=== PATIENT | male | born 1975 | race Caucasian/White ===

== ENCOUNTER 2016-09-07 21:04 | Emergency (ER) | payer OTHER ==
[~2016-09-07] VITALS: Ht 185.4 cm; Wt 114.5 kg
[~2016-09-07 21:04] MED LIST: BENA25TA8 PO; EPIP0.3I IM; Z.0.NO CURRENT MEDS
[2016-09-07 21:07] VITALS: BP 136/92; PULSE 105; RESP 18; TEMP 97.9; O2SAT 97
[2016-09-07] MEDS ORDERED: L-AR500T PO (21:39)
--- NOTE | 2016-09-07 21:54 | PD ---
HPI Chief Complaint: Abdominal Pain Time Seen by Provider: 21:50 Travel History International Travel<30 days: No Contact w/Intl Traveler<30days: No Traveled to known affect area: No History of Present Illness HPI 40 year-old male presents to the emergency department for complaint of left upper quadrant abdominal pain. Patient reports that he's had daily left upper quadrant abdominal pain with bloating sensation 6-8 months. Patient states this seems to happen primarily between 3 AM and 6 AM. Patient reports at times the pain associated makes him cry but he never goes to the hospital at that time for evaluation. Patient states he is followed through the [facility] but has not been able to get to the clinic because when he has appointment he's pulled away because his work. Patient reportedly works in [place]. Patient admits to daily frequent alcohol use. No prior history of pancreatitis alcoholic gastritis or hepatitis. Patient takes no prescription medication. The patient has had no fever or chills. Patient denies chest pain or shortness of breath. Patient states she's been told he has constipation. Patient reports symptoms have actually occurred for 2 years but of been less frequent until the last 6 months. Patient's had no reported hematemesis coffee-ground emesis melena hematochezia dysuria frequency urgency flank pain or weight loss. Patient denies other concerns or complaints. Patient rates current pain as 2-5/10 in intensity. Patient is unable to identify exacerbating or alleviating factors. Patient cannot make in association with type of foods or activities. PFSH Past Medical History Diminished Hearing: No Immunizations Current: Yes Tetanus Vaccination: > 5 Years Influenza Vaccination: No Past Surgical History Other Surgery: Yes (nasal) Social History Alcohol Use: Yes (OCC) Tobacco Use: Yes (1 PPD) Substance Use: No Allergies-Medications (Allergen,Severity, Reaction): Coded Allergies: Ants (Verified Allergy, Severe, Shortness of Breath, 09/07/16) Reported Meds & Prescriptions Reported Meds & Active Scripts Active Reported l-Arginine (Arginine) 500 Mg Tab Tab PO TID Review of Systems Except as stated in HPI: all other systems reviewed are Neg Physical Exam Narrative GENERAL: Well-developed well-nourished male in no acute distress no respiratory distress SKIN: Warm and dry. HEAD: Normocephalic. EYES: No scleral icterus. No injection or drainage. NECK: Supple, trachea midline. No JVD or lymphadenopathy. CARDIOVASCULAR: Regular rate and rhythm without murmurs, gallops, or rubs. RESPIRATORY: Breath sounds equal bilaterally. No accessory muscle use. GASTROINTESTINAL: Abdomen soft, non-tender, nondistended. MUSCULOSKELETAL: No cyanosis, or edema. BACK: Nontender without obvious deformity. No CVA tenderness. Data Data Last Documented VS Vital Signs Date Time Temp Pulse Resp B/P Pulse Ox O2 Delivery O2 Flow Rate FiO2 09/07/16 23:50 88 20 131/76 97 Room Air 09/07/16 21:07 97.9 Orders Complete Blood Count With Diff (09/07/16 21:50) Comprehensive Metabolic Panel (09/07/16 21:50) Lipase (09/07/16 21:50) Urinalysis - C+S If Indicated (09/07/16 21:50) Electrocardiogram (09/07/16 21:50) Magnesium (Mg) (09/07/16 21:50) Alcohol (Ethanol) (09/07/16 21:50) Potassium Chloride (Kcl) (09/07/16 23:30) Pantoprazole (Protonix) (09/07/16 23:30) Sucralfate Liq (Carafate Liq) (09/07/16 23:30) Troponin I (09/07/16 22:06) Labs Laboratory Tests Test 09/07/16 09/07/16 21:30 22:06 Urine Color YELLOW Urine Turbidity CLEAR Urine pH 5.5 Urine Specific [place] 1.018 Urine Protein NEG mg/dL Urine Glucose (UA) NEG mg/dL Urine Ketones 15 mg/dL Urine Occult Blood NEG Urine Nitrite NEG Urine Bilirubin NEG Urine Leukocyte Esterase NEG Urine RBC 0-2 /hpf Urine WBC 0-2 /hpf Urine Squamous Epithelial 0-5 /hpf Cells Urine Bacteria NONE /hpf Microscopic Urinalysis Comment CULT NOT INDICATED White Blood Count 8.3 TH/MM3 Red Blood Count 5.32 MIL/MM3 Hemoglobin 15.2 GM/DL Hematocrit 44.5 % Mean Corpuscular Volume 83.5 FL Mean Corpuscular Hemoglobin 28.6 PG Mean Corpuscular Hemoglobin 34.2 % Concent Red Cell Distribution Width 12.8 % Platelet Count 203 TH/MM3 Mean Platelet Volume 8.8 FL Neutrophils (%) (Auto) 56.0 % Lymphocytes (%) (Auto) 29.7 % Monocytes (%) (Auto) 8.8 % Eosinophils (%) (Auto) 1.0 % Basophils (%) (Auto) 4.5 % Neutrophils # (Auto) 4.6 TH/MM3 Lymphocytes # (Auto) 2.5 TH/MM3 Monocytes # (Auto) 0.7 TH/MM3 Eosinophils # (Auto) 0.1 TH/MM3 Basophils # (Auto) 0.4 TH/MM3 CBC Comment DIFF FINAL Differential Comment Sodium Level 138 MEQ/L Potassium Level 3.3 MEQ/L Chloride Level 102 MEQ/L Carbon Dioxide Level 26.1 MEQ/L Anion Gap 10 MEQ/L Blood Urea Nitrogen 13 MG/DL Creatinine 1.10 MG/DL Estimat Glomerular Filtration 75 ML/MIN Rate Random Glucose 108 MG/DL Calcium Level 8.3 MG/DL Magnesium Level 2.0 MG/DL Total Bilirubin 0.7 MG/DL Aspartate Amino Transf 22 U/L (AST/SGOT) Alanine Aminotransferase 71 U/L (ALT/SGPT) Alkaline Phosphatase 76 U/L Troponin I LESS THAN 0.02 NG/ML Total Protein 7.3 GM/DL Albumin 3.5 GM/DL Lipase 140 U/L Ethyl Alcohol Level 11 MG/DL MDM Medical Decision Making Medical Screen Exam Complete: Yes Emergency Medical Condition: Yes Medical Record Reviewed: Yes Interpretation(s) CBC & BMP Diagram 09/07/16 22:06 Vital Signs Date Time Temp Pulse Resp B/P Pulse Ox O2 Delivery O2 Flow Rate FiO2 09/07/16 23:50 88 20 131/76 97 Room Air 09/07/16 21:55 92 20 162/80 97 Room Air 09/07/16 21:07 97.9 105 18 136/92 97 Troponin I: Less than 0.02, not elevated EKG sinus rhythm rate 99 nonspecific T wave changes without acute ST elevation or injury pattern change noted Differential Diagnosis Abdominal pain, gastritis, peptic ulcer disease, colitis, atypical chest pain, atypical biliary colic, abdominal wall strain Narrative Course Patient with 2 years of left upper quadrant abdominal pain that is now reportedly occurring more frequently over the past 6-8 months on a daily basis that at times is so severe it makes him cry although has not had any evaluation for this and finally decided that he would get it checked at this time not because of worsening symptoms or increasing symptoms or change in symptoms as far as intensity duration or location also without ability to identify exacerbating or alleviating factors with vague nonspecific abdominal pain that is not reproducible at this time on physical exam. Vital signs found to be remarkable for mild sinus tachycardia 1 patient arrived that has improved after resting. Lab values revealed no acute abnormalities except for hypokalemia and patient was mildly elevated serum alcohol level. Patient is stable for outpatient management and follow-up with his primary care provider to the [facility] as scheduled for 25 September. Patient should keep that appointment. Patient may require further evaluation and even include GI consultations/endoscopy. Diagnosis Primary Impression: Abdominal pain, chronic, left upper quadrant Referrals: Primary Care Physician call for appointment Patient Instructions: General Instructions Additional Instructions: Follow-up with your primary care provider Use [id number] Pepcid as directed 14 days Return to the emergency department for any concerns or change in condition Avoid use of nonsteroidal anti-inflammatory medications such as ibuprofen/Advil/ Motrin or Aleve/Naprosyn Discontinue alcohol use Return to the emergency department for any concerns or change in condition Med/Other Pt SpecificInfo: No Meds Exist/No RX given Disposition: 01 DISCHARGE HOME Condition: Stable Yarelis Lundberg MD Sep 07, 2016 21:54
[2016-09-07 21:55] VITALS: BP 162/80; PULSE 92; RESP 20; O2SAT 97
[2016-09-07 22:22] LABS: AUTOMATED NEUTROPHIL # 4.6 TH/MM3 (1.8-7.7); BASOPHIL # 0.4 TH/MM3 (0-0.2); BASOPHIL % 4.5 % (0.0-2.0); EOSINOPHIL # 0.1 TH/MM3 (0-0.4); HEMATOCRIT 44.5 % (39.0-51.0); HEMO FLAGS DIFF FINAL; LYMPH % 29.7 % (9.0-44.0); LYMPHOCYTE # 2.5 TH/MM3 (1.0-4.8); MEAN CELL VOLUME 83.5 FL (80.0-100.0); MEAN CORPUSCULAR HEMOGLOBIN 28.6 PG (27.0-34.0); MEAN CORPUSCULAR HGB CONC 34.2 % (32.0-36.0); MONO % 8.8 % (0.0-8.0); PLATELET COUNT 203 TH/MM3 (150-450); RED BLOOD COUNT 5.32 MIL/MM3 (4.50-5.90); RED CELL DISTRIBUTION WIDTH 12.8 % (11.6-17.2); WHITE BLOOD COUNT 8.3 TH/MM3 (4.0-11.0)
[2016-09-07 22:24] LABS: CHLORIDE 102 MEQ/L (98-107); POTASSIUM 3.3 MEQ/L (3.5-5.1); SODIUM (NA) 138 MEQ/L (136-145)
[2016-09-07 22:26] LABS: BLOOD, URINE NEG (NEG); GLUCOSE,URINE NEG (NEG); KETONE, URINE 15 mg/dL (NEG); NITRITE,URINE NEG (NEG); PH, URINE 5.5 (5.0-8.5)
[2016-09-07 22:28] LABS: ANION GAP 10 MEQ/L (5-15); BICARBONATE 26.1 MEQ/L (21.0-32.0); BLOOD UREA NITROGEN 13 MG/DL (7-18)
[2016-09-07 22:30] LABS: ALT (GPT) 71 U/L (12-78); AST (GOT) 22 U/L (15-37)
[2016-09-07 22:31] LABS: GLOMERULAR FILTRATION RATE 75 ML/MIN (>89)
[2016-09-07 22:32] LABS: TOTAL BILIRUBIN ADULT 0.7 MG/DL (0.2-1.0)
[2016-09-07 22:33] LABS: ALKALINE PHOSPHATASE 76 U/L (45-117)
[2016-09-07 22:35] LABS: RBC, URINE 0-2 /hpf (0-3); URINE COLOR YELLOW (YELLW/STRAW); WBC, URINE 0-2 /hpf (0-5)
[2016-09-07 22:36] LABS: COMMENT (UR) CULT NOT INDICATED; CULTURE IF INDICATED CULT NOT INDICATED; SQUAMOUS EPITHELIAL CELL URINE 0-5 /hpf (0-5)
[2016-09-07] MEDS ORDERED: PANTOPRAZOLE SOD 40 MG DELAYED RELEASE TAB PO ONE (23:30)
[2016-09-07] MEDS ORDERED: POTASSIUM CHLORIDE 20 MEQ CONTROLLED RELEASE TAB PO ONE (23:30)
[2016-09-07] MEDS ORDERED: SUCRALFATE 1 GM/10 ML CUP PO ONE (23:30)
[2016-09-07 23:50] VITALS: BP 131/76; PULSE 88; RESP 20; O2SAT 97
[2016-09-08 00:45] VITALS: BP 136/72
--- NOTE | 2016-09-08 13:27 | EKG ---
Date Performed: 09/07/2016 Time Performed: 22:05:54 PTAGE: 40 years EKG: Sinus rhythm Extensive T wave changes are nonspecific Borderline ECG PREVIOUS TRACING : 04/23/2011 18.33 Compared to previous tracing, nonspecific T wave changes ar e now evident. DOCTOR: Jeff Harper Interpretating Date/Time 09/08/2016 13:26:55
== END 2016-09-08 00:56 | disposition home or self-care (01) ==
LOC: PHED 21:04
DX: R10.12 Left upper quadrant pain (principal); G89.29 Other chronic pain; F17.200 Nicotine dependence, unspecified, uncomplicated; R94.31 Abnormal electrocardiogram [ECG] [EKG]
CPT/HCPCS: 80053; 80320; 81001; 83690; 83735; 84484; 85025; 93005